=== PATIENT | male | born 2000 | race Caucasian/White ===

== ENCOUNTER 2020-11-25 04:00 | Emergency (ER) | payer OTHER ==
[~2020-11-25] VITALS: Ht 177.8 cm; Wt 59.0 kg
[2020-11-25] MEDS ORDERED: LEXAPRO 10 MG T10 M1 PO (04:12)
[2020-11-25] MEDS ORDERED: BUSPAR30 MG PO (04:12)
[2020-11-25 05:11] LABS: HEMATOCRIT 39.1 % (42.0-52.0); HEMOGLOBIN 14.3 gm/dL (14.0-18.0); MCH 29.6 pg (26.0-34.0); MCHC 36.4 g/dL (28.0-37.0); MCV 81.2 fL (80.0-100.0); MPV 8.3 fl. (7.2-11.1); RBC 4.82 mil/uL (4.50-6.00); RDW-CV 13.3 % (10.5-14.5); WBC 8.8 thou/uL (4.0-11.0)
[2020-11-25 05:25] LABS: CALCIUM 9.3 mg/dL (8.5-10.1); CREATININE 0.8 mg/dL (0.6-1.3); POTASSIUM 3.5 mmol/L (3.5-5.1)
[2020-11-25 05:30] LABS: TOTAL BILIRUBIN 1.5 mg/dL (<0.1-1.0); TOTAL PROTEIN 7.8 g/dL (6.4-8.2)
[2020-11-25 05:38] LABS: URINE BILIRUBIN NEGATIVE (Negative); URINE BLOOD NEGATIVE (Negative); URINE CLARITY CLEAR; URINE COLOR STRAW; URINE GLUCOSE-RANDOM NEGATIVE (Negative); URINE KETONES NEGATIVE (Negative); URINE LEUKOCYTES-REFLEX NEGATIVE (Negative); URINE NITRITE-REFLEX NEGATIVE (Negative); URINE PROTEIN NEGATIVE (Negative); URINE SPECIFIC GRAVITY <= 1.005 (1.005-1.030); URINE UROBILINOGEN 0.2 E.U./dl (0.2-1.0)
[2020-11-25 05:45] LABS: AMP/METHAMP Negative (Negative); BARBITURATES Negative (Negative); BENZODIAZEPINES Negative (Negative); COCAINE Negative (Negative); METHADONE Negative (Negative); OPIATES Negative (Negative); PCP Negative (Negative); THC POSITIVE (Negative)
[2020-11-25 06:50] VITALS: BP 131/70
--- NOTE | 2020-11-25 13:33 | EKG ---
[place] [address] ELECTROCARDIOGRAM REPORT Name: LEANDRO KELLEY Room: [facility]#: [id number] Admission: 11/25/20 Attend Phys: Discharge: 11/25/20 Date of : [birth year] Date of Service: 11/25/20421 Report #: [id number] THIS REPORT FOR: //name// [facility] ED Test Date: 2020-11-25 Test Time: 04:22:46 Pat Name: LEANDRO KELLEY Department: Room: Gender: Bow [employer] Gift Wrapping: [facility] : 2000 Requested By: Lakshmi Ragland Order Number: [id number] MD: Ta Alfaro Measurements Intervals [place] Rate: 70 P: 80 MA: 158 QRS: 76 QRSD: 80 T: 74 QT: 377 QTc: 407 Interpretive Statements Sinus rhythm No previous ECG available for comparison Electronically Signed On 11-25-2020 13:33:40 CDT by Ta Alfaro [email or web address] <ELECTRONICALLY SIGNED> By: Ta Alfaro MD, [facility] 11/25/20 1333 1 1 Ta Alfaro MD, FACC /EPI
== END 2020-11-25 06:50 | disposition home or self-care (01) ==
LOC: M.ERS 04:00
PROVIDERS: Personal Emergency Response Attendant
DX: F12.980 Cannabis use, unspecified with anxiety disorder (principal); Z20.822 Contact with and (suspected) exposure to COVID-19; R42 Dizziness and giddiness; Z79.899 Other long term (current) drug therapy